=== PATIENT | male | born 1940 | race Caucasian/White ===

== ENCOUNTER 2016-11-10 14:49 | Inpatient (IN) | payer OTHER ==
[~2016-11-10] VITALS: Ht 167.6 cm; Wt 81.2 kg
[~2016-11-10 14:49] MED LIST: AMLO5TAB4 PO; ASPI81CT89 PO; BISA5ECT2 PO; DOCU-67 PO; FAMO10TA89 PO; HYDR-4446 PO; KEP500 PO; KEP500L PO; Metoprolol Tartrate PO; OSC500 PO; PHO667 PO; PYRI50TA12 PO; SACC250C4 PO; SEVE800T6 PO; SIMV20TA1 PO; SLIDE SUBQ; SYN.075 PO; TAMS0.4C96 PO; TRAM50TA94 PO; VITA1TAB44 PO
--- NOTE | 2016-11-10 14:55 | NUR ---
PT BIBA TO BED 3 AT THIS TIME.
[2016-11-10 15:10] VITALS: BP 141/66
--- NOTE | 2016-11-10 15:16 | NUR ---
PATIENT MOVED VIA GURNEY TO BED 4 AT THIS TIME.
--- NOTE | 2016-11-10 15:20 | NUR ---
PT BIBA FROM SNF FOR EVALUATION OF EDEMA R/T REFUSAL OF DIALYSIS X3 DAYS. HX DM, ESRD, HTN, CHF. DENIES N/V/D; SKIN IS PINK/WARM/DRY; AAOX4 WITH EVEN AND STEADY GAIT; LUNGS CLEAR BL; HR EVEN AND REGULAR; PT DENIES ANY FEVER, CP, SOB, OR COUGH AT THIS TIME; PATIENT STATES PAIN OF 0/10 AT THIS TIME; VSS; PATIENT POSITIONED FOR COMFORT; HOB ELEVATED; BEDRAILS UP X2; BED DOWN. ER MD MADE AWARE OF PT STATUS.
[2016-11-10 15:55] LABS: BASOPHILS # (AUTO) 0.1 K/uL (0.00-0.22); BASOPHILS % (AUTO) 1.2 % (0.0-2.0); EOSINOPHILS # (AUTO) 0.4 K/uL (0-0.4); EOSINOPHILS % (AUTO) 5.4 % (0.0-4.0); HEMATOCRIT 21.5 % (36-52); LYMPHOCYTES # (AUTO) 1.2 K/uL (2.0-11.5); LYMPHOCYTES % (AUTO) 15.4 % (20.5-51.1); MEAN CORPUSCULAR HEMOGLOBIN 29 pg (27-31); MEAN CORPUSCULAR HGB CONC 32 g/dL (33-37); MEAN CORPUSCULAR VOLUME 89 fL (80-94); MONOCYTES # (AUTO) 0.8 K/uL (0.8-1.0); NEUTROPHILS # (AUTO) 5.1 K/uL (1.8-7.7); PLATELET COUNT (AUTO) 257 K/uL (140-450); RED BLOOD CELL COUNT(AUTO) 2.43 MIL/uL (4.20-6.10); RED CELL DISTRIBUTION WIDTH 16.1 % (11.6-13.7); WHITE BLOOD COUNT (AUTO) 7.6 K/uL (4.8-10.8)
[2016-11-10 15:58] LABS: INR 1.1 (0.8-1.2); PARTIAL THROMBOPLASTIN TIME 29.9 secs (22-35.6)
[2016-11-10 16:03] LABS: ALANINE AMINOTRANSFERASE 100 U/L (16-63); ALBUMIN 2.5 g/dL (3.4-5.0); ALKALINE PHOSPHATASE 604 U/L (46-116); ANION GAP 13.5 (8-16); ASPARTATE AMINOTRANSFERASE 74 U/L (15-37); CALCIUM 8.1 mg/dL (8.5-10.1); CARBON DIOXIDE 28.5 mmol/L (21-32); CHLORIDE 93 mmol/L (98-107); GLUCOSE 160 mg/dL (74-106); SODIUM SERUM 131 mmol/L (136-145); TOTAL BILIRUBIN 0.6 mg/dL (0.0-1.0); TOTAL PROTEIN, SERUM 6.5 g/dL (6.4-8.2)
[2016-11-10 16:07] LABS: CREATININE 6.7 mg/dL (0.7-1.3); UREA NITROGEN, BLOOD 79 mg/dL (7-18)
[2016-11-10] MEDS ORDERED: AZITHROMYCIN 500 MG in DEXTROSE 5% 250 ML IV ONE (16:15)
--- NOTE | 2016-11-10 16:20 | NUR ---
PT PROVIDED URINE VIA URINAL FOR URINALYSIS
[2016-11-10 16:36] LABS: LACTIC ACID 0.9 mmol/L (0.4-2.0)
[2016-11-10] MEDS ORDERED: ONDANSETRON 4 MG/2 ML VIAL IM/IVP PRN (16:55)
[2016-11-10] MEDS ORDERED: HYDROcodone/APAP 7.5/325 MG 1 TAB PO PRN (16:55)
[2016-11-10] MEDS ORDERED: DOCUSATE SODIUM 100 MG GELCAP PO PRN (16:55)
[2016-11-10] MEDS ORDERED: traMADol 50 MG TAB PO PRN (17:00)
[2016-11-10] MEDS ORDERED: AZITHROMYCIN 500 MG INJ VIAL IV ONE (17:00)
[2016-11-10] MEDS ORDERED: NON-FORMULARY ITEM (Saccharomyces Boulardii* (Florastor*) 250 MG) PO SCH (17:00)
[2016-11-10] MEDS ORDERED: SEVELAMER CARBONATE 800 MG TAB PO SCH (17:00)
[2016-11-10 17:29] LABS: MAGNESIUM 2.4 mg/dL (1.8-2.4); PHOSPHORUS 6.3 mg/dL (2.5-4.9); THYROID STIMULATING HORMONE 3.79 uIU/mL (0.34-3.74)
--- NOTE | 2016-11-10 18:04 | NUR ---
Patient will be admitted to care of STEFANIE. Admited to TELE. Will go to room 112B. Belongings list completed. Report to DAMI VARGHESE.
--- NOTE | 2016-11-10 19:30 | NUR ---
RECEIVED REPORT FROM CHARGE NURSE FOR CONTINUITY OF CARE. 76 Y.O. MALE BROUGHT TO UNIT IN STABLE CONDITION. PATIENT IS A&OX3, DISCUSSED PLAN OF CARE WITH PATIENT. NO S/S OF DISTRESS OR DISCOMFORT NOTED ON 2L NC. PATIENT DENIES PAIN. AV SHUNT TO LEFT UPPER ARM. IV TO RT AC PATENT AND FLUSHED. SKIN INTACT. WRISTBANDS APPLIED, SAFETY PRECAUTIONS ENFORCED, CALL LIGHT WITHIN REACH. WILL CONTINUE TO MONITOR.
[2016-11-10] MEDS ORDERED: LEVOFLOXACIN 500 MG/D5W PREMIX 100 ML IV SCH (19:40)
[2016-11-10 20:00] VITALS: BP 160/71
--- NOTE | 2016-11-10 20:00 | NUR ---
DR. DE IN TO SEE PATIENT.
[2016-11-10] MEDS ORDERED: CALCIUM CARBONATE 500 MG TAB PO SCH (21:00)
[2016-11-10] MEDS ORDERED: TAMSULOSIN 0.4 MG CAP PO SCH (21:00)
[2016-11-10] MEDS: levETIRAcetam 500 MG TAB PO SCH (21:07)
--- NOTE | 2016-11-10 21:07 | NUR ---
DUE MEDICATIONS ADMINISTERED, TOLERATED WELL. PATIENT REQUESTING FOR MEDICATION FOR SLEEP, INFORMED DR, WILL FOLLOW OUT ORDERS GIVEN.
[2016-11-10] MEDS ORDERED: DEXTROSE 50% 50 ML SYR IVP PRN (21:35)
[2016-11-10] MEDS ORDERED: LORazepam 2 MG/ML VIAL IVP PRN (21:40)
[2016-11-10] MEDS ORDERED: PANTOPRAZOLE 40 MG INJ VIAL IVP ONE (21:50)
--- NOTE | 2016-11-10 23:00 | NUR ---
IV TO RT AC DISLODGED, NEW IV INSERTION TO RT HAND PATENT AND FLUSHED.
[2016-11-10] MEDS ORDERED: LACTULOSE 20 GM/30 ML UDC PO ONE (23:15)
[2016-11-10] MEDS: ZOLPIDEM 10 MG TAB PO PRN (23:30)
[2016-11-11] VITALS: BP 126/90
--- NOTE | 2016-11-11 | NUR ---
INFORMED DIALYSIS NURSE OF ORDER FOR AM DIALYSIS PER DR. ZHAO.
--- NOTE | 2016-11-11 00:18 | NUR ---
RECEIVED CRITICAL LAB VALUE FOR TROPONIN 0.207, INFORMED DR. DE. PATIENT SLEEPING AT THIS TIME. WILL CONTINUE TO MONITOR.
[2016-11-11] MEDS ORDERED: CLINDAMYCIN 600 MG/4 ML VIAL ONE ×2 (00:50→05:52)
[2016-11-11] MEDS: CLINDAMYCIN 600 MG in DEXTROSE 5% 50 ML IV SCH ×3 (01:15→12:20)
--- NOTE | 2016-11-11 02:00 | NUR ---
PATIENT SLEEPING, NO DISTRESS OR DISCOMFORT NOTED. CALL LIGHT WITHIN REACH.
--- NOTE | 2016-11-11 03:22 | NUR ---
INFORMED CT THAT PATIENT NEEDS TO HAVE CT AROUND 0600 PER , NEEDS FOR CONSULT WITH DR. DAVIS. PER DR. LOU OK TO HAVE U/S IN AM WELL. INFORMED MD THAT URINE CULTURE NEEDS TO BE REORDERED. WILL FOLLOW OUT ORDERS GIVEN. Addendum: 11/11/16 at 0457 by Maria Del Carmen Soriano RN PER CT ULTRASOUND NOT HERE UNTIL 0630.
[2016-11-11 04:00] VITALS: BP 125/64
--- NOTE | 2016-11-11 04:00 | NUR ---
VITAL SIGNS STABLE, PATIENT RESTING IN BED. NO S/S OF DISTRESS OR DISCOMFORT NOTED.
[2016-11-11] MEDS ORDERED: ALBUTEROL SULFATE/IPRATROPIU 3 ML SOL IH PRN (04:30)
[2016-11-11] MEDS ORDERED: BISACODYL 5 MG TABEC PO PRN (04:30)
[2016-11-11] MEDS: BLOOD GLUCOSE MONITORING 1 DEV DEV FS SCH ×4 (06:00→21:12)
--- NOTE | 2016-11-11 06:20 | NUR ---
PATIENT TAKEN OFF UNIT TO CT IN STABLE CONDITION.
[2016-11-11] MEDS ORDERED: NON-FORMULARY ITEM (Famotidine (Famotidine) 20 MG) PO SCH (06:30)
[2016-11-11 06:45] LABS: HEMOGLOBIN A1C 5.2 % (4.8-5.6); T4 (THYROXINE) 5.9 ug/dL (4.5-12.0)
--- NOTE | 2016-11-11 06:45 | NUR ---
PATIENT BROUGHT BACK FROM CT IN STABLE CONDITION, IVPB RESTARTED. WILL CONTINUE TO MONITOR.
[2016-11-11] MEDS: LEVOTHYROXINE 0.075 MG TAB PO SCH (06:48)
[2016-11-11] MEDS: CALCIUM ACETATE 667 MG TAB PO SCH ×2 (06:48→17:10)
[2016-11-11] MEDS: FAMOTIDINE 20 MG TAB PO SCH (06:48)
[2016-11-11] MEDS: ALBUTEROL SULFATE/IPRATROPIU 3 ML SOL IH SCH ×3 (07:05→19:55)
--- NOTE | 2016-11-11 07:11 | NUR ---
ENDORSED PATIENT AT BEDSIDE TO DAY RN FOR CONTINUITY OF CARE.
--- NOTE | 2016-11-11 07:11 | NUR ---
RECEIVED REPORT FROM NIGHT NURSE, PT IS AAOX3 CZECH SPEAKING, ON O2 2L VIA NC, SKIN INTACT, IV TO RIGHT HAND 24G SALINE LOCK PATENT AND INTACT, LEFT UPPER AV SHUNT. INITIAL ASSESSMENT COMPLETED, REVIEWED PLAN OF CARE WITH PT, PT VERBALIZED UNDERSTANDING. ALL SAFETY PRECAUTIONS MET. ALL NEEDS MET. CALL LIGHT WITHIN REACH. WILL CONTINUE TO MONITOR.
[2016-11-11 07:38] LABS: BASOPHILS % (AUTO) 0.7 % (0.0-2.0); EOSINOPHILS # (AUTO) 0.3 K/uL (0-0.4); EOSINOPHILS % (AUTO) 4.6 % (0.0-4.0); LYMPHOCYTES # (AUTO) 1.1 K/uL (2.0-11.5); LYMPHOCYTES % (AUTO) 15.5 % (20.5-51.1); MEAN CORPUSCULAR HEMOGLOBIN 28 pg (27-31); MEAN CORPUSCULAR HGB CONC 32 g/dL (33-37); MEAN CORPUSCULAR VOLUME 88 fL (80-94); MONOCYTES # (AUTO) 0.8 K/uL (0.8-1.0); MONOCYTES % (AUTO) 11.3 % (1.7-9.3); NEUTROPHILS # (AUTO) 4.7 K/uL (1.8-7.7); NEUTROPHILS % (AUTO) 67.9 % (42.2-75.2); PLATELET COUNT (AUTO) 275 K/uL (140-450); RED BLOOD CELL COUNT(AUTO) 2.16 MIL/uL (4.20-6.10); RED CELL DISTRIBUTION WIDTH 16.1 % (11.6-13.7); WHITE BLOOD COUNT (AUTO) 6.9 K/uL (4.8-10.8)
[2016-11-11 07:42] LABS: HEMOGLOBIN 6.1 g/dL (12.0-18.0)
[2016-11-11 07:51] LABS: MAGNESIUM 2.4 mg/dL (1.8-2.4); PHOSPHORUS 6.6 mg/dL (2.5-4.9)
[2016-11-11 07:56] LABS: ANION GAP 15.1 (8-16); CARBON DIOXIDE 25.2 mmol/L (21-32); CHLORIDE 95 mmol/L (98-107); GLUCOSE 130 mg/dL (74-106); POTASSIUM 4.3 mmol/L (3.5-5.1); SODIUM SERUM 131 mmol/L (136-145)
[2016-11-11 07:57] VITALS: BP 129/67
[2016-11-11 07:57] LABS: CREATININE 6.6 mg/dL (0.7-1.3); UREA NITROGEN, BLOOD 87 mg/dL (7-18)
[2016-11-11] MEDS ORDERED: SEVELAMER CARBONATE 800 MG TAB PO SCH (08:01)
[2016-11-11] MEDS ORDERED: [UNRECOGNIZED DRUG - OTHER] PO SCH (09:00)
[2016-11-11] MEDS: amLODIPine 5 MG TAB PO SCH (09:00)
[2016-11-11] MEDS ORDERED: METOPROLOL 25 MG TAB PO SCH (09:00)
[2016-11-11] MEDS ORDERED: ASPIRIN 81 MG TAB.CHEW PO SCH (09:00)
[2016-11-11] MEDS ORDERED: SIMVASTATIN 20 MG TAB PO SCH (09:00)
[2016-11-11] MEDS ORDERED: VIT-B COMP/VIT-C/FOLIC ACID 1 TAB PO SCH (09:00)
--- NOTE | 2016-11-11 09:04 | NUR ---
PATIENT HAS BEEN SCREENED AND CATEGORIZED HIGH NUTRITION RISK. PATIENT WILL BE SEEN WITHIN 1-2 DAYS OF ADMISSION. 11/11/16-11/12/[address]
[2016-11-11] MEDS: levETIRAcetam 500 MG TAB PO SCH ×2 (09:10→21:10)
[2016-11-11] MEDS: CALCIUM CARBONATE 500 MG TAB PO SCH ×2 (09:11→17:10)
[2016-11-11] MEDS: PYRIDOXINE 50 MG TAB PO SCH (09:11)
[2016-11-11] MEDS: LACTOBACILLUS RHAMNOSUS GG 1 EACH CAP PO SCH (09:11)
[2016-11-11] MEDS: VIT-B COMP/VIT-C/FOLIC ACID 1 TAB PO SCH (09:11)
--- NOTE | 2016-11-11 09:11 | NUR ---
CAMPBELL MEDICATIONS GIVEN, NEW IV INSERTED RIGHT FA 22G SALINE LOCK. ALL NEEDS MET. WILL CONTINUE TO MONITOR. Addendum: 11/11/16 at 0958 by Zehra Duncan RN BP MEDS NOT GIVE VS WNL.
[2016-11-11] MEDS: PANTOPRAZOLE 40 MG INJ VIAL IVP SCH ×2 (09:51→21:10)
[2016-11-11 11:34] LABS: BASOPHILS # (AUTO) 0.1 K/uL (0.00-0.22); LYMPHOCYTES # (AUTO) 0.8 K/uL (2.0-11.5)
[2016-11-11 11:46] LABS: BASOPHILS % (AUTO) 1.3 % (0.0-2.0); EOSINOPHILS # (AUTO) 0.2 K/uL (0-0.4); EOSINOPHILS % (AUTO) 3.3 % (0.0-4.0); LYMPHOCYTES % (AUTO) 12.9 % (20.5-51.1); MEAN CORPUSCULAR HEMOGLOBIN 29 pg (27-31); MEAN CORPUSCULAR HGB CONC 33 g/dL (33-37); MEAN CORPUSCULAR VOLUME 88 fL (80-94); MONOCYTES # (AUTO) 0.7 K/uL (0.8-1.0); MONOCYTES % (AUTO) 11.3 % (1.7-9.3); NEUTROPHILS # (AUTO) 4.3 K/uL (1.8-7.7); NEUTROPHILS % (AUTO) 71.2 % (42.2-75.2); PLATELET COUNT (AUTO) 273 K/uL (140-450); RED BLOOD CELL COUNT(AUTO) 2.01 MIL/uL (4.20-6.10); WHITE BLOOD COUNT (AUTO) 6.1 K/uL (4.8-10.8)
[2016-11-11 11:48] LABS: HEMATOCRIT 17.6 % (36-52); HEMOGLOBIN 5.7 g/dL (12.0-18.0)
--- NOTE | 2016-11-11 11:56 | NUR ---
11/11/16 RD INITIAL ASSESSMENT COMPLETED PLEASE REFER TO NUTRITION ASSESSMENT UNDER CARE ACTIVITY FOR ESTIMATED NUTRITIONAL NEEDS. 1. WHEN MEDICALLY FEASIBLE, INITIATE PO DIET - TO START ON CLEAR LIQUID DIET, ADVANCE TOLERATED TO RENAL, 75G CONSISTENT CARBOHYDRATE DIET 2. RD TO FOLLOW-UP 2-3 DAYS; HIGH RISK JEANNE REN, HUGO
[2016-11-11 12:00] VITALS: BP 143/59
[2016-11-11] MEDS: SEVELAMER CARBONATE 800 MG TAB PO SCH ×2 (12:20→17:10)
--- NOTE | 2016-11-11 12:20 | NUR ---
DUE MEDICATIONS GIVEN. ALL NEEDS MET. WILL CONTINUE TO MONITOR.
--- NOTE | 2016-11-11 12:50 | NUR ---
PATIENT OFF O2 OXYGEN, POST THERAPY PLACED BACK ON O2 3LPM NC
--- NOTE | 2016-11-11 13:00 | NUR ---
LOAN SERVICING OFFICER UNABLE TO PROCEED WITH INCENTIVE SPIROMETRY THERAPY AT THIS TIME DUE TO PATIENT WITH SLIGHT COMBATIVENESS LOAN SERVICING OFFICER TO ATTEMPT AT A LATER TIME
--- NOTE | 2016-11-11 14:25 | NUR ---
HD NURSE CURRENTLY IN ROOM, ALL NEEDS MET. WILL CONTINUE TO MONITOR.
--- NOTE | 2016-11-11 15:05 | NUR ---
FIRST UNIT OF RBC GIVEN BY HEMODIALYSIS NURSE.
--- NOTE | 2016-11-11 15:45 | NUR ---
FIRST UNIT OF RBC COMPLETED. PT CONTINUES TO GET HEMODIALYSIS. WILL CONTINUE TO MONITOR.
[2016-11-11 16:00] VITALS: BP 120/84
[2016-11-11] MEDS ORDERED: ACETAMINOPHEN 325 MG TAB PO PRN (16:00)
[2016-11-11] MEDS ORDERED: FUROSEMIDE 20 MG TAB PO PRN (16:00)
--- NOTE | 2016-11-11 16:02 | NUR ---
PATIENT UNABLE TO PROCEED WITH INCENTIVE SPIROMETRY THERAPY DUE TO THE FOLLOWIN) LOC ASLEEP UNABLE TO WAKE 2) HEMODIALYSIS IN PROGRESS
--- NOTE | 2016-11-11 16:30 | NUR ---
SECOND UNIT OF RBC COMPLETED.
[2016-11-11] MEDS ORDERED: LACTULOSE 20 GM/30 ML UDC PO SCH ×2 (16:41→21:00)
[2016-11-11] MEDS ORDERED: FERRIC GLUCONATE 125 MG in NACL 0.9% 100 ML IV SCH (17:03)
[2016-11-11] MEDS: TAMSULOSIN 0.4 MG CAP PO SCH (17:10)
[2016-11-11] MEDS: SENNA 8.6 MG TAB PO SCH (17:11)
[2016-11-11] MEDS: INSULIN LISPRO SLIDING SCALE 100 UNITS/ML VIAL SUBQ PRN (17:29)
--- NOTE | 2016-11-11 17:29 | NUR ---
DUE MEDICATION GIVEN. PT TOLERATED WELL. ALL NEEDS MET. WILL CONTINUE TO MONITOR.
--- NOTE | 2016-11-11 19:15 | NUR ---
RECEIVED REPORT FROM DAMI RICHMOND AT BEDSIDE. INITIAL ASSESSMENT COMPLETED. PT AAOX3. PT IN BEDREST. PT'S SKIN IS INTACT. PT HAS A LEFT UPPER ARM AV SHUNT FOR DIALYSIS. PT HAS A RIGHT FOREARM IV 22 G; ASYMPTOMATIC, PATENT AND INTACT. PT ON FALL/RISK PRECAUTION AND SEIZURE PRECAUTIONS. PT ON 02 3L NC. EXPLAINED PLAN OF CARE TO PT, WILL CONTINUE TO MONITOR. BED ALARM ON.
--- NOTE | 2016-11-11 19:15 | NUR ---
ENDORSED PLAN OF CARE TO NIGHT NURSE, PT IN STABLE CONDITION.
[2016-11-11 20:00] VITALS: BP 145/70
--- NOTE | 2016-11-11 20:50 | NUR ---
BRANDO FROM LAB CAME TO DRAW PT'S LABS POST TRANSFUSION AND PT REFUSED. I EXPLAINED TO PT THE IMPORTANCE OF THE BLOOD DRAW, BUT STILL REFUSES. PAGED DR. DE AND CAME TO SEE PT. WE TALKED TO PT AND TRIED TO CONVINCED HIM BUT HE STILL REFUSES. WILL CONTINUE TO MONITOR PT.
[2016-11-11] MEDS: LACTULOSE 20 GM/30 ML UDC PO SCH (21:10)
[2016-11-11] MEDS: ZOLPIDEM 10 MG TAB PO PRN (21:11)
[2016-11-11] MEDS: ASCORBIC ACID 500 MG TAB PO SCH (21:11)
[2016-11-11] MEDS: SIMVASTATIN 20 MG TAB PO SCH (21:11)
--- NOTE | 2016-11-11 21:20 | NUR ---
PT TOLERATED 2100 MEDS WELL; PT REQUESTED A SLEEPING PILL. EDUCATION GIVEN REGARDING THE MEDICATION. WILL CONTINUE TO MONITOR PT.
--- NOTE | 2016-11-11 21:25 | NUR ---
PT DRANK SOME OF THE MAGNESIUM CITRATE; HE STATED HE WILL DRINK THE REST LITTLE BY LITTLE. WILL CONTINUE TO MONITOR PT.
[2016-11-11] MEDS ORDERED: MAGNESIUM CITRATE 300 ML BTL PO SCH (22:00)
--- NOTE | 2016-11-11 22:53 | NUR ---
PT REPOSITIONED FOR COMFORT. PT TOLERATED IT WELL. WILL CONTINUE TO MONITOR PT.
--- NOTE | 2016-11-11 23:18 | NUR ---
PT REMINDED THAT HE WILL BE NPO AFTER MIDNIGHT. PT VERBALIZES UNDERSTANDING.
--- NOTE | 2016-11-11 23:53 | NUR ---
CHECKED ON PT, CHECKED VS AND PT GOT ANGRY. HE STATED THAT MEDICAL STAFF DO NOT LET HIM SLEEP BECAUSE WE ENTER THE ROOM TOO MANY TIMES. I EXPLAINED TO HIM THAT WE WANT TO CHECK ON HIM TO MAKE SURE HE IS OK. WILL CONTINUE TO MONITOR PT.
[2016-11-12] VITALS: BP 138/72
--- NOTE | 2016-11-12 00:05 | NUR ---
URINE COLLECTED AND SENT TO LAB.
--- NOTE | 2016-11-12 03:10 | NUR ---
PT SLEEPING COMFORTABLY, NO SINGS OF DISTRESS/DISCOMFORT NOTED. WILL CONTINUE TO MONITOR PT.
[2016-11-12 04:00] VITALS: BP 145/74
[2016-11-12 06:05] LABS: BASOPHILS # (AUTO) 0.1 K/uL (0.00-0.22); BASOPHILS % (AUTO) 1.3 % (0.0-2.0); EOSINOPHILS # (AUTO) 0.2 K/uL (0-0.4); EOSINOPHILS % (AUTO) 3.3 % (0.0-4.0); HEMATOCRIT 25.2 % (36-52); HEMOGLOBIN 8.4 g/dL (12.0-18.0); LYMPHOCYTES % (AUTO) 14.3 % (20.5-51.1); MEAN CORPUSCULAR HEMOGLOBIN 29 pg (27-31); MEAN CORPUSCULAR HGB CONC 33 g/dL (33-37); MEAN CORPUSCULAR VOLUME 88 fL (80-94); MONOCYTES # (AUTO) 0.9 K/uL (0.8-1.0); MONOCYTES % (AUTO) 12.2 % (1.7-9.3); NEUTROPHILS # (AUTO) 4.9 K/uL (1.8-7.7); NEUTROPHILS % (AUTO) 68.9 % (42.2-75.2); PLATELET COUNT (AUTO) 248 K/uL (140-450); RED BLOOD CELL COUNT(AUTO) 2.86 MIL/uL (4.20-6.10); RED CELL DISTRIBUTION WIDTH 14.8 % (11.6-13.7); WHITE BLOOD COUNT (AUTO) 7.1 K/uL (4.8-10.8)
[2016-11-12] MEDS: CALCIUM ACETATE 667 MG TAB PO SCH ×2 (06:31→16:22)
[2016-11-12] MEDS: LEVOTHYROXINE 0.075 MG TAB PO SCH (06:32)
[2016-11-12] MEDS: FAMOTIDINE 20 MG TAB PO SCH (06:32)
--- NOTE | 2016-11-12 06:36 | NUR ---
PT TOLERATED MORNING MEDS WELL.
--- NOTE | 2016-11-12 06:40 | NUR ---
CALL DR. DAVIS TO NOTIFY HIM THAT PT IS STILL HAVING FORMED STOOLS. DR. CHERY GAVE ORDERS FOR GOLYTELY 2 L NOW AND TO GIVE MAGNESIUM CITRATE 300 ML ONCE THREE HOURS AFTER GIVING GOLYTELY. WILL FOLLOW UP ON ORDERS.
[2016-11-12] MEDS ORDERED: BOWEL EVACUANT DRINK 4,000 ML PDS PO SCH (06:45)
[2016-11-12 07:16] LABS: CALCIUM 8.4 mg/dL (8.5-10.1); CARBON DIOXIDE 28.2 mmol/L (21-32); CHLORIDE 100 mmol/L (98-107); CREATININE 3.8 mg/dL (0.7-1.3); GLUCOSE 114 mg/dL (74-106); POTASSIUM 4.2 mmol/L (3.5-5.1); SODIUM SERUM 138 mmol/L (136-145); UREA NITROGEN, BLOOD 41 mg/dL (7-18)
[2016-11-12] MEDS: ALBUTEROL SULFATE/IPRATROPIU 3 ML SOL IH SCH ×3 (07:17→19:30)
[2016-11-12] MEDS: BLOOD GLUCOSE MONITORING 1 DEV DEV FS SCH ×4 (07:29→20:43)
--- NOTE | 2016-11-12 07:31 | NUR ---
FOUND PT ON ROOM AIR SPO2 85%, PT RETURNED TO 2L NC SPO2 NORMAL AT THIS TIME.
--- NOTE | 2016-11-12 07:32 | NUR ---
ENDORSED PLAN OF CARE TO DAY SHIFT NURSE PT IN STABLE CONDITION.
--- NOTE | 2016-11-12 07:32 | NUR ---
RECEIVED REPORT FROM NIGHT NURSE, PT IS AAOX3 AMHARIC SPEAKING, ON O2 2L VIA NC, SKIN INTACT, IV TO RIGHT HAND 24G SALINE LOCK PATENT AND INTACT, LEFT UPPER AV SHUNT. INITIAL ASSESSMENT COMPLETED, REVIEWED PLAN OF CARE WITH PT, PT VERBALIZED UNDERSTANDING. ALL SAFETY PRECAUTIONS MET. ALL NEEDS MET. CALL LIGHT WITHIN REACH. WILL CONTINUE TO MONITOR.
[2016-11-12 08:00] VITALS: BP 140/68
[2016-11-12] MEDS: CALCIUM CARBONATE 500 MG TAB PO SCH ×2 (08:00→16:22)
[2016-11-12] MEDS: SEVELAMER CARBONATE 800 MG TAB PO SCH ×3 (08:00→16:22)
[2016-11-12] MEDS: LACTOBACILLUS RHAMNOSUS GG 1 EACH CAP PO SCH (08:21)
[2016-11-12] MEDS: LACTULOSE 20 GM/30 ML UDC PO SCH ×2 (08:21→12:36)
[2016-11-12] MEDS: METOPROLOL SUCCINATE 50 MG TABER PO SCH (08:22)
[2016-11-12] MEDS: amLODIPine 5 MG TAB PO SCH (08:22)
[2016-11-12] MEDS: VIT-B COMP/VIT-C/FOLIC ACID 1 TAB PO SCH (08:22)
[2016-11-12] MEDS: PYRIDOXINE 50 MG TAB PO SCH (08:22)
[2016-11-12] MEDS: SENNA 8.6 MG TAB PO SCH ×3 (08:22→20:44)
[2016-11-12] MEDS: levETIRAcetam 500 MG TAB PO SCH ×2 (08:22→20:43)
[2016-11-12] MEDS: ASCORBIC ACID 500 MG TAB PO SCH ×2 (08:23→20:44)
[2016-11-12] MEDS: MORPHINE SULFATE 2 MG/ML SYR IVP PRN (08:29)
[2016-11-12] MEDS: PANTOPRAZOLE 40 MG INJ VIAL IVP SCH (08:29)
--- NOTE | 2016-11-12 08:35 | NUR ---
PO MEDICATIONS NOT GIVE, PT CURRENTLY NPO FOR PROCEDURE, PT C/CO OF PAIN MEDICATED PER MD ORDERS. ALL NEEDS MET. WILL CONTINUE TO MONITOR.
[2016-11-12] MEDS ORDERED: MAGNESIUM CITRATE 300 ML BTL PO SCH (09:40)
--- NOTE | 2016-11-12 10:45 | NUR ---
PT CURRENTLY SLEEPING, CALL LIGHT WITHIN REACH. WILL CONTINUE TO MONITOR.
--- NOTE | 2016-11-12 11:10 | NUR ---
PT REFUSING TO DRINK GOLYTELY 1500MLS LEFT, ENCOURAGE PT TO DRINK, PT REFUSES.
[2016-11-12 12:00] VITALS: BP 142/75
[2016-11-12] MEDS ORDERED: SODIUM PHOSPHATE 118 ML ENEM RC SCH (13:05)
--- NOTE | 2016-11-12 13:05 | NUR ---
PT LEFT UNIT FOR PROCEDURE IN STABLE CONDITION
[2016-11-12] MEDS: MIDAZOLAM 2 MG/2 ML VIAL ONE ×2 (13:52→14:04)
[2016-11-12] MEDS ORDERED: diphenhydrAMINE 50 MG/ML VIAL ONE (13:53)
[2016-11-12] MEDS: fentaNYL 0.05 MG/ML VIAL ONE ×2 (13:53→14:04)
[2016-11-12] MEDS ORDERED: MIDAZOLAM 2 MG/2 ML VIAL ONE (14:17)
--- NOTE | 2016-11-12 14:40 | NUR ---
PT ARRIVED TO UNIT FROM OR, VS TEMP 97.9, BP 128/52, HR 92 PULSE OX 95% ON O2 2L VIA NC. CALL LIGHT WITHIN REACH. WILL CONTINUE TO MONITOR.
[2016-11-12] MEDS: FERRIC GLUCONATE 125 MG in NACL 0.9% 100 ML IV SCH (15:31)
--- NOTE | 2016-11-12 15:31 | NUR ---
DUE MEDICATIONS GIVEN, ALL NEEDS MET. WILL CONTINUE TO MONITOR.
[2016-11-12 15:56] VITALS: BP 137/66
--- NOTE | 2016-11-12 16:05 | NUR ---
PT CURRENTLY SLEEPING . CALL LIGHT WITHIN REACH. WILL CONTINUE TO MONITOR.
[2016-11-12] MEDS: TAMSULOSIN 0.4 MG CAP PO SCH (16:22)
[2016-11-12] MEDS: METOCLOPRAMIDE 10 MG TAB PO SCH (16:27)
--- NOTE | 2016-11-12 16:36 | NUR ---
DUE MEDICATION GIVEN GIVEN. PT TOLERATED WELL. ALL NEEDS MET. WILL CONTINUE TO MONITOR.
[2016-11-12 16:42] LABS: ALBUMIN 2.5 g/dL (3.4-5.0); BILIRUBIN,DIRECT 0.3 mg/dL (0.0-0.3); TOTAL BILIRUBIN 0.4 mg/dL (0.0-1.0); TOTAL PROTEIN, SERUM 5.9 g/dL (6.4-8.2)
--- NOTE | 2016-11-12 19:30 | NUR ---
RECEIVED REPORT FROM AM NURSE. PT RESTING IN BED, AOX2, PT CONFUSED BUT ABLE TO VERBALIZE NEEDS. PT REORIENTED TO SITUATION AND SURROUNDING. PT DENIES CHEST PAIN, SOB OR S/S OF ACUTE DISTRESS. PT DENIES ACUTE PAIN. O2 2L NC IN PLACE. STUDIO TECHNICIAN IN PLACE. LEFT AV SHUNT NOTED, LIMB RESTRICTIONS AND PRECAUTIONS MAINTAINED. IV ACCESS ASYMPTOMATIC, PATENT AND INTACT. SALINE LOCKED. DISCUSSED AND REVIEWED PLAN OF CARE WITH PT. PT INSTRUCTED TO BE NPO AT MIDNIGHT. WILL CONTINUE TO REINFORCE TEACHING. SAFETY MEASURES ENSURED. CALL LIGHT WITHIN REACH. WILL CONTINUE TO MONITOR.
[2016-11-12 20:00] VITALS: BP 143/62
--- NOTE | 2016-11-12 20:10 | NUR ---
PT EVALUATED BY DR MONTAÑO, DISCUSSED PT CONDITION AND PLAN OF CARE. PT AOX2, CONFUSED AT THIS TIME. ORDERS ACKNOWLEDGED TO OBTAIN CONSENT FOR ERCP, STENT REMOVAL, POLYPECTOMY AND BX. STATED THAT THE PT FAMILY'S CONTACT INFO WAS NOT WORKING. WILL CALL [facility], PT'S [facility], FOR PT'S FAMILY CONTACT INFO
--- NOTE | 2016-11-12 20:18 | NUR ---
CALLED [facility], RECEIVED CONTACT INFO FOR ASHLY MCDERMOTT, PT'S , ; JAGDISH MCDERMOTT, PT'S SON, ; NNAMDI MCDERMOTT . MADE DR BRITO AWARE, STATED THAT IT IS THE SAME CONTACT INFO THAT WE HAVE ON PT'S CHART AND THE NUMBERS WERE NOT WORKING. CALLED ALL OF PT'S FAMILY CONTACTS, NO ANSWER AND NO VOICEMAIL OPTION. WILL FOLLOW UP.
[2016-11-12] MEDS: SIMVASTATIN 20 MG TAB PO SCH (20:44)
--- NOTE | 2016-11-12 20:45 | NUR ---
BLOOD SUGAR 111, NO INSULIN COVERAGE NEEDED. PT REFUSED DUE MEDS DESPITE EDUCATION. WILL TRY AGAIN LATER. WILL NOTIFY MD. SAFETY MEASURES ENSURED. CALL LIGHT WITHIN REACH. WILL CONTINUE TO MONITOR
[2016-11-12] MEDS ORDERED: LEVOFLOXACIN 250 MG/D5 PREMIX 50 ML IV SCH (21:00)
--- NOTE | 2016-11-12 21:45 | NUR ---
ATTEMPTED TO ADMINISTER PT'S DUE MEDICATIONS, PT STILL REFUSING DESPITE EDUCATION. HANDED PT THE MEDICATION CUP ON HIS HAND WHILE EXPLAINING THE IMPORTANCE OF PT'S MEDICATIONS, PT THREW THE MEDICATION CUP TO THE FLOOR. WILL MAKE MD AWARE. PT CLEANED, TURNED AND REPOSITIONED, OFFLOADED PRESSURE AREAS WITH NUCLEAR LICENSING ENGINEER. LARGE BLACK LOOSE BM NOTED. SAFETY MEASURES ENSURED. CALL LIGHT WITHIN REACH.
[2016-11-12] MEDS ORDERED: levETIRAcetam 500 MG in NACL 0.9% 100 ML IV ONE (23:15)
[2016-11-12] MEDS ORDERED: levETIRAcetam 100 MG/ML VIAL IV ONE (23:57)
[2016-11-13] VITALS (13 sets, daily range): BP systolic 120–146; BP diastolic 52–70
--- NOTE | 2016-11-13 00:01 | NUR ---
ADMINISTERED ONE TIME KEPPRA 500MG IN 100ML NS IVPB AT THIS TIME. IVPB INFUSING WELL. PT CLEANED, TURNED AND REPOSITIONED. LARGE BLACK LOOSE BM NOTED WITH MILD ODOR. MADE MD AWARE. SAFETY MEASURES ENSURED. CALL LIGHT WITHIN REACH.
--- NOTE | 2016-11-13 04:50 | NUR ---
PT RESTING IN BED. PT SEEN WITH O2 2C ON BED. O2 NC IS PUT BACK ON, PT REORIENTED AND EDUCATED ON IMPORTANCE OF O2 NC, SPO2 94%, RR 24. SAFETY MEASURES ENSURED. CALL LIGHT WITHIN REACH. WILL CONTINUE TO MONITOR.
[2016-11-13] MEDS: FAMOTIDINE 20 MG TAB PO SCH (06:22)
[2016-11-13] MEDS: LEVOTHYROXINE 0.075 MG TAB PO SCH (06:23)
--- NOTE | 2016-11-13 06:26 | NUR ---
HELD PEPCID PER DR BAUMAN. ADMINISTERED LEVOTHYROXINE ORDERED PER DR BAUMAN. PT TOLERATED WELL.
--- NOTE | 2016-11-13 06:41 | NUR ---
BLOOD SUGAR 105, NO INSULIN COVERAGE NEEDED.
--- NOTE | 2016-11-13 07:15 | NUR ---
ENDORSED PLAN OF CARE TO AM NURSE. CONDITION STABLE.
[2016-11-13] MEDS: ALBUTEROL SULFATE/IPRATROPIU 3 ML SOL IH SCH ×3 (07:17→18:55)
--- NOTE | 2016-11-13 07:20 | NUR ---
RECEIVED PT IN BED. AWAKE. ALERT ORIENTED X3. NO SOB NOTED. ON 2LPM VIA NC. DENIES ANY PAIN OR DISCOMFORT AT THIS TIME. POSITIVE BOWEL SOUNDS NOTED ON FOUR QUADRANTS. PT ON BEDBOUND. SAFETY PRECAUTION IN PLACE. CALL LIGHT WITHIN REACH.
[2016-11-13] MEDS: CALCIUM ACETATE 667 MG TAB PO SCH ×2 (07:25→17:00)
[2016-11-13] MEDS: BLOOD GLUCOSE MONITORING 1 DEV DEV FS SCH ×4 (07:25→21:00)
[2016-11-13] MEDS: METOCLOPRAMIDE 10 MG TAB PO SCH ×3 (07:25→17:00)
--- NOTE | 2016-11-13 07:25 | NUR ---
ADMINISTERED DUE MEDICATIONS REGLAN AND SANDIPSLO, OK TO GIVE PER DR BAUMAN. PT VERBALIZED UNDERSTANDING, TOLERATED MEDS WELL.
[2016-11-13] MEDS ORDERED: levETIRAcetam 500 MG in NACL 0.9% 100 ML IV SCH (09:00)
[2016-11-13 09:04] LABS: BASOPHILS # (AUTO) 0.1 K/uL (0.00-0.22); BASOPHILS % (AUTO) 1.6 % (0.0-2.0); EOSINOPHILS # (AUTO) 0.4 K/uL (0-0.4); HEMATOCRIT 26.8 % (36-52); HEMOGLOBIN 8.4 g/dL (12.0-18.0); LYMPHOCYTES # (AUTO) 1.3 K/uL (2.0-11.5); LYMPHOCYTES % (AUTO) 14.2 % (20.5-51.1); MEAN CORPUSCULAR HEMOGLOBIN 28 pg (27-31); MEAN CORPUSCULAR HGB CONC 32 g/dL (33-37); MEAN CORPUSCULAR VOLUME 88 fL (80-94); MONOCYTES # (AUTO) 0.5 K/uL (0.8-1.0); MONOCYTES % (AUTO) 5.5 % (1.7-9.3); NEUTROPHILS # (AUTO) 6.9 K/uL (1.8-7.7); NEUTROPHILS % (AUTO) 74.7 % (42.2-75.2); PLATELET COUNT (AUTO) 351 K/uL (140-450); RED BLOOD CELL COUNT(AUTO) 3.04 MIL/uL (4.20-6.10); RED CELL DISTRIBUTION WIDTH 15.6 % (11.6-13.7); WHITE BLOOD COUNT (AUTO) 9.2 K/uL (4.8-10.8)
[2016-11-13 09:14] LABS: ANION GAP 11.9 (8-16); CALCIUM 8.7 mg/dL (8.5-10.1); CARBON DIOXIDE 30.2 mmol/L (21-32); CHLORIDE 99 mmol/L (98-107); GLUCOSE 112 mg/dL (74-106); POTASSIUM 4.1 mmol/L (3.5-5.1); SODIUM SERUM 137 mmol/L (136-145); UREA NITROGEN, BLOOD 49 mg/dL (7-18)
[2016-11-13] MEDS: ASCORBIC ACID 500 MG TAB PO SCH ×2 (09:14→20:47)
[2016-11-13] MEDS: METOPROLOL SUCCINATE 50 MG TABER PO SCH (09:14)
[2016-11-13] MEDS: LACTOBACILLUS RHAMNOSUS GG 1 EACH CAP PO SCH (09:15)
[2016-11-13] MEDS: PYRIDOXINE 50 MG TAB PO SCH (09:15)
[2016-11-13] MEDS: CALCIUM CARBONATE 500 MG TAB PO SCH ×2 (09:15→17:00)
[2016-11-13] MEDS: LACTULOSE 20 GM/30 ML UDC PO SCH (09:15)
[2016-11-13] MEDS: levETIRAcetam 500 MG TAB PO SCH ×2 (09:16→20:46)
[2016-11-13] MEDS: SEVELAMER CARBONATE 800 MG TAB PO SCH ×3 (09:16→17:00)
[2016-11-13] MEDS: amLODIPine 5 MG TAB PO SCH (09:16)
[2016-11-13] MEDS: VIT-B COMP/VIT-C/FOLIC ACID 1 TAB PO SCH (09:16)
[2016-11-13 09:17] LABS: PHOSPHORUS 4.6 mg/dL (2.5-4.9)
--- NOTE | 2016-11-13 09:27 | NUR ---
CLARIFIED WITH DR. CANELA REGARDING MEDICATION ORDER FOR PT IF ITS NPO EXCEPT MEDS. WITH ORDERS MADE AND CARRIED OUT. PT MORE AWAKE NOW. ABLE TO TELL HIS NAME AND KNOW WHERE HE IS. PROCEDURE FOR ERCP EXPLAINED TO PT. DR. CANELA CAME TO SEE PT. TURKMEN SPEAKING STAFF CAME TO SPEAK WITH PT. PT VERBALIZED UNDERSTANDING REGARDING PROCEDURE FOR ERCP, STENT REMOVAL AND SIGNED CONSENT.
[2016-11-13 09:38] LABS: CREATININE 4.7 mg/dL (0.7-1.3)
--- NOTE | 2016-11-13 09:52 | NUR ---
[employer] SPAR FINISHER USED TO SPEAK WITH PT. SORORITY MOTHER NAME ROSAMARIA AND ID [id number]. DR. CANELA SPOKE WITH PT THROUGH THE SPAR FINISHER REGARDING PROCEDURE. EXPLAINED RISKS AND BENEFITS FOR THE ERCP, STENT REMOVAL, POLYPECTOMY AND BIOPSY PROCEDURE. PT AGREED AND VERBALIZED UNDERSTANDING. CONSENT OBTAINED.
--- NOTE | 2016-11-13 10:34 | NUR ---
DR. CANELA MADE AWARE OF MAGNESIUM LEVEL ON HIGH 3.3.
--- NOTE | 2016-11-13 11:19 | NUR ---
CHARGE NURSE FOLLOWED UP WITH DIALYSIS FOR SCHEDULED DIALYSIS TODAY. ACCORDING TO DIALYSIS STAFF THEY WILL COME TODAY WILL BE A LITTLE LATE.
--- NOTE | 2016-11-13 11:36 | NUR ---
DR. MANZANO CALLED. MADE AWARE THAT CONSENT WAS OBTAINED FOR ERCP, STENT REMOVAL. AND MADE AWARE THAT PT NPO EXCEPT MEDS AND LAST MED TAKEN AT 0900. ACCORDING TO HE WILL SCHEDULE PT NOW.
--- NOTE | 2016-11-13 11:51 | NUR ---
DR. DAVIS CALLED REGARDING PT. MADE AWARE THAT PT SIGNED CONSENT FOR ERCP STENT REMOVAL AND DR. MANZANO WILL SCHEDULE IT TODAY. ALSO CLARIFIED WITH DR. DAVIS REGARDING ORDER FOR ABDOMINAL ULTRASOUND MADE AWARE THAT PT HAD LAST ABD ULTRASOUND NOVEMBER 11, [address] DUEÑAS[address] DR[address] DAVIS SAID THEN NO NEED FOR ANOTHER ULTRASOUND. AND HE WILL TAKE A LOOK AT THE RESULT FOR THE PREVIOUSLY ORDERED ONE.
--- NOTE | 2016-11-13 12:43 | NUR ---
DR. CANELA MADE AWARE OF LATEST EKG RESULT QUADRIGEMINY.
--- NOTE | 2016-11-13 13:16 | NUR ---
OR STAFF ELLIE LOMAX CAME TO SENIOR WRITER PT. MADE AWARE OF LATEST BLOOD SUGAR OR PT AT 1130 106MG/DL PT VERBALIZED HE IS HUNGRY. PT TRANSFERRED TO OR ON STABLE CONDITION.
--- NOTE | 2016-11-13 15:40 | NUR ---
RECEIVED FROM ER IN BED, S/P ERCP ,STENT REMOVAL, POLYPECTANYAND BIOPSY..T. IS AWAKE WHEN CALL HIS NAME EFERN JAPANESE SPEAKING. HAS AV SHUNT FOR DIALYSIS ON LEFT UPPER ARM. IV FLUID HAS # 22ON RT WRIST INFUSING NS AT 30ML/HR HE ON O2 2L/MIN/NC. Addendum: 11/13/16 at 1805 by Deysi Mayers RN RECEIVED PT FRO OR..
--- NOTE | 2016-11-13 15:45 | NUR ---
DR. FRAZIER AT BED SIDE ORDER RECEIVED TO KEEPPATIENT IN ICU UNTILL 2100 ,TRANSFER BACK TO TELE WHEN VS STABLE.
[2016-11-13] MEDS: FERRIC GLUCONATE 125 MG in NACL 0.9% 100 ML IV SCH (16:30)
--- NOTE | 2016-11-13 16:30 | NUR ---
RECEIVED REPORT FROM IMANI LOMAX.PT WITH LEFT UPPER ARM AV FISTULA WITH HD ONGOING.PT IS ON FACE MASK AT 3L BUT REMOVING IT SO CHANGED TO 6LNC.PT SATURATING 98 PERCENT.PT WANTS TO EAT.RIGHT FOREARM 22 GAUGE IV WITH NS AT 30 ML/H.NSR ON THE MONITOR.PT IS ANURIC.JASKARAN MONITOR.NO CO PAIN.PER PT NO DOLOR.
[2016-11-13] MEDS ORDERED: PROPOFOL 200 MG/20 ML VIAL IV ONE (16:48)
[2016-11-13] MEDS: TAMSULOSIN 0.4 MG CAP PO SCH (17:30)
[2016-11-13] MEDS: INSULIN LISPRO SLIDING SCALE 100 UNITS/ML VIAL SUBQ PRN (18:00)
--- NOTE | 2016-11-13 19:32 | NUR ---
PT STILL IN ICU, DIALYSIS STILL ON GOING. ENDORSED TO NEXT SHIFT TO HAVE ICU WRITE DOWN 1800 INTERVENTION. ENDORSED TO NEXT SHIFT FOR CONTINUITY OF CARE.
[2016-11-13] MEDS: SENNA 8.6 MG TAB PO SCH (20:47)
[2016-11-13] MEDS: ACETAMINOPHEN 325 MG TAB PO PRN (20:47)
[2016-11-13] MEDS: SIMVASTATIN 20 MG TAB PO SCH (20:48)
--- NOTE | 2016-11-13 21:10 | NUR ---
report given to charly
--- NOTE | 2016-11-13 21:15 | NUR ---
TRANSFERRED PATIENT TO [facility] WITH A MONITOR.NSR WITH BBB.2LNC.RIGHT FOREARM 22 GAUGE PATENT AND INTACT.
--- NOTE | 2016-11-13 21:20 | NUR ---
RECEIVED REPORT FROM ICU NURSE. PT RESTING IN BED, AOX3, ABLE TO VERBALIZE NEEDS, PT REORIENTED TO SITUATION AND SURROUNDINGS. VS NOTED. MAILER IN PLACE. SPO2 99% AT 2L O2 NC. LEFT AV SHUNT NOTED, LIMB RESTRICTIONS AND PRECAUTIONS MAINTAINED. PT C/O PAIN. PT ALREADY MEDICATED WITH TYLENOL IN ICU, WILL REASSESS. IV ACCESS ASYMPTOMATIC, PATENT AND INTACT. SALINE LOCKED. DISCUSSED PLAN OF CARE WITH PT. PT VERBALIZED UNDERSTANDING, WILL NEED CONSTANT REINFORCEMENT. SAFETY MEASURES ENSURED. CALL LIGHT WITHIN REACH. WILL CONTINUE TO MONITOR.
--- NOTE | 2016-11-13 22:42 | NUR ---
CALLED DR ESPINOZA, MANAGER URGENT CARE FOR DR VENEGAS. MADE AWARE OF HELD MEDICATIONS REGLAN, FERRIC GLUCONATE, FLOMAX, CALCIUM CARBONATE AND PHOSLO THAT WERE HELD BEFORE DIALYSIS WHEN PT WAS IN ICU. STATED HE WILL CALL THE INTERNS.
[2016-11-14] VITALS: BP 143/59
--- NOTE | 2016-11-14 00:50 | NUR ---
PT SLEEPING. CONDITION STABLE. ALL NEEDS MET. SAFETY MEASURES ENSURED. CALL LIGHT WITHIN REACH.
[2016-11-14] MEDS: ZOLPIDEM 10 MG TAB PO PRN (02:01)
[2016-11-14] MEDS: MORPHINE SULFATE 2 MG/ML SYR IVP PRN ×2 (02:01→16:13)
--- NOTE | 2016-11-14 02:01 | NUR ---
PT TURNED AND REPOSITIONED, OFFLOADED PRESSURE AREAS. PT TOLERATED WELL. PT C/O INSOMNIA. ADMINISTERED AMBIEN WITH EDUCATION. PT C/O PAIN. SEE PAIN ASSESSMENT. ADMINISTERED MORPHINE ORDERED. SAFETY MEASURES ENSURED. CALL LIGHT WITHIN REACH.
[2016-11-14 04:00] VITALS: BP 135/63
--- NOTE | 2016-11-14 04:15 | NUR ---
PT TURNED AND REPOSITIONED, OFFLOADED PRESSURE AREAS. PT SLEEPING COMFORTABLY. CONDITION STABLE. ALL NEEDS MET. SAFETY MEASURES ENSURED. CALL LIGHT WITHIN REACH. WILL CONTINUE TO MONITOR.
--- NOTE | 2016-11-14 05:45 | NUR ---
PT SLEEPING, PT IS DROWSY WHEN ATTEMPTING TO WAKE. ATTEMPTED TO ADMINISTER DUE MEDICATIONS, BUT PT IS DROWSY AND DISORIENTED AT THIS TIME TO TAKE DUE MEDICATIONS. WILL ATTEMPT TO ADMINISTER AGAIN.
[2016-11-14 05:53] LABS: BASOPHILS # (AUTO) 0.1 K/uL (0.00-0.22); BASOPHILS % (AUTO) 0.7 % (0.0-2.0); EOSINOPHILS # (AUTO) 0.4 K/uL (0-0.4); EOSINOPHILS % (AUTO) 3.7 % (0.0-4.0); HEMATOCRIT 29.3 % (36-52); HEMOGLOBIN 9.4 g/dL (12.0-18.0); LYMPHOCYTES # (AUTO) 0.5 K/uL (2.0-11.5); MEAN CORPUSCULAR HEMOGLOBIN 29 pg (27-31); MEAN CORPUSCULAR HGB CONC 32 g/dL (33-37); MEAN CORPUSCULAR VOLUME 89 fL (80-94); MONOCYTES # (AUTO) 0.7 K/uL (0.8-1.0); MONOCYTES % (AUTO) 7.2 % (1.7-9.3); NEUTROPHILS # (AUTO) 8.2 K/uL (1.8-7.7); NEUTROPHILS % (AUTO) 83.4 % (42.2-75.2); PLATELET COUNT (AUTO) 395 K/uL (140-450); RED BLOOD CELL COUNT(AUTO) 3.28 MIL/uL (4.20-6.10); RED CELL DISTRIBUTION WIDTH 15.6 % (11.6-13.7)
[2016-11-14] MEDS: LEVOTHYROXINE 0.075 MG TAB PO SCH (06:30)
[2016-11-14] MEDS: FAMOTIDINE 20 MG TAB PO SCH (06:30)
--- NOTE | 2016-11-14 06:30 | NUR ---
PT STILL SLEEPING SOUNDLY, PT IS DROWSY WHEN ATTEMPTING TO WAKE. ATTEMPTED TO ADMINISTER DUE MEDICATIONS AGAIN, BUT PT IS STILL DROWSY AND DISORIENTED AT THIS TIME TO TAKE DUE MEDICATIONS. WILL ENDORSE TO AM NURSE.
[2016-11-14 06:31] LABS: ANION GAP 10.7 (8-16); CALCIUM 8.6 mg/dL (8.5-10.1); CHLORIDE 98 mmol/L (98-107); CREATININE 3.3 mg/dL (0.7-1.3); GLUCOSE 157 mg/dL (74-106); POTASSIUM 3.7 mmol/L (3.5-5.1); SODIUM SERUM 138 mmol/L (136-145); UREA NITROGEN, BLOOD 23 mg/dL (7-18)
[2016-11-14] MEDS: BLOOD GLUCOSE MONITORING 1 DEV DEV FS SCH ×4 (06:33→20:55)
[2016-11-14 07:16] LABS: WHITE BLOOD COUNT (AUTO) 9.9 K/uL (4.8-10.8)
[2016-11-14] MEDS: ALBUTEROL SULFATE/IPRATROPIU 3 ML SOL IH SCH ×3 (07:28→18:00)
--- NOTE | 2016-11-14 07:28 | NUR ---
ENDORSED PLAN OF CARE TO AM NURSE. PT SLEEPING COMFORTABLY. CONDITION STABLE.
--- NOTE | 2016-11-14 07:29 | NUR ---
RECEIVED PT IN BED. ASLEEP. AROUSABLE TO TOUCH. PT SLEEPY. NO SOB NOTED. ON 2LPM O2 VIA NC. DENIES ANY PAIN OR DISCOMFORT AT THIS TIME. PT BEDBOUND. POSITIVE BOWEL SOUNDS NOTED ON FOUR QUADRANTS. SAFETY PRECAUTION IN PLACE. CALL LIGHT WITHIN REACH.
[2016-11-14 08:00] VITALS: BP 148/75
--- NOTE | 2016-11-14 08:00 | NUR ---
PT HAVE A TEMPERATURE OF 100.7. COOLING MEASURES PROVIDED. MEDICATED TYLENOL PRN FOR TEMP >100.4. WILL REASSESS.
[2016-11-14] MEDS: ACETAMINOPHEN 325 MG TAB PO PRN ×2 (08:29→20:06)
[2016-11-14] MEDS: LACTOBACILLUS RHAMNOSUS GG 1 EACH CAP PO SCH (08:30)
[2016-11-14] MEDS: ASCORBIC ACID 500 MG TAB PO SCH ×2 (08:30→20:07)
[2016-11-14] MEDS: PYRIDOXINE 50 MG TAB PO SCH (08:30)
[2016-11-14] MEDS: METOCLOPRAMIDE 10 MG TAB PO SCH ×3 (08:30→16:12)
[2016-11-14] MEDS: amLODIPine 5 MG TAB PO SCH (08:30)
--- NOTE | 2016-11-14 08:30 | NUR ---
DR. CANELA MADE AWARE THAT PT HAS A TEMPERATURE AND MEDICATED ORDERED PRN. DR. CANELA CAME TO SEE PT WITH DR. SWANSON WITH ORDERS MADE AND CARRIED OUT.
[2016-11-14] MEDS: CALCIUM CARBONATE 500 MG TAB PO SCH ×2 (08:31→16:13)
[2016-11-14] MEDS: METOPROLOL SUCCINATE 50 MG TABER PO SCH (08:31)
[2016-11-14] MEDS: CALCIUM ACETATE 667 MG TAB PO SCH ×2 (08:31→16:13)
[2016-11-14] MEDS: VIT-B COMP/VIT-C/FOLIC ACID 1 TAB PO SCH (08:32)
[2016-11-14] MEDS: levETIRAcetam 500 MG TAB PO SCH ×2 (08:32→20:06)
[2016-11-14] MEDS: LACTULOSE 20 GM/30 ML UDC PO SCH (08:32)
[2016-11-14] MEDS: SEVELAMER CARBONATE 800 MG TAB PO SCH ×3 (08:32→16:12)
[2016-11-14] MEDS ORDERED: LEVOFLOXACIN 750 MG/D5W PREMIX 150 ML IV SCH (09:35)
[2016-11-14 12:00] VITALS: BP 122/48
--- NOTE | 2016-11-14 12:00 | NUR ---
T 100.5 RR @ 28 BREATH SOUDSN BILATERAL BASES RALES WITH GOOD CHEST RISE SATURATION 95% ON SUPPLEMENTAL OXYGEN AT 4 LPM VIA NC TITRATION ORDER KEEP O2 GREATER THAN 90% POST HHN THERAPY DECREASED FIO2 TO 3 LPM JESSICA/RN NOTIFIED SNOW REMOVAL SUPERVISOR TO MONITOR
[2016-11-14] MEDS: CLINDAMYCIN 600 MG in DEXTROSE 5% 50 ML IV SCH ×3 (12:42→23:13)
[2016-11-14] MEDS: INSULIN LISPRO SLIDING SCALE 100 UNITS/ML VIAL SUBQ PRN ×2 (12:46→16:52)
--- NOTE | 2016-11-14 13:01 | NUR ---
DR. CANELA MADE AWARE THAT PT DOES NOT HAVE URINE OUTPUT FOR UA. PT IS A DIALYSIS PT. ALSO MADE AWARE THAT PT DOES NOT TOLERATE REGULAR DIET WELL. ORDERS MADE AND CARRIED OUT.
[2016-11-14 13:36] LABS: APPEARANCE,URINE HAZY (CLEAR); BILIRUBIN,URINE 1+ (NEGATIVE); BLOOD, URINE TRACE-L (NEGATIVE); LEUKOCYTE ESTERASE ,URINE NEGATIVE (NEGATIVE); NITRITE, URINE NEGATIVE (NEGATIVE); PROTEIN,URINE 2+ (NEGATIVE); UGLUCOSE NEGATIVE (NEGATIVE); UROBILINOGEN,URINE 0.2 EU/dL (0.2 - 1)
[2016-11-14 13:38] LABS: COLOR,URINE AMBER (YELLOW)
[2016-11-14 13:45] LABS: BACTERIA,URINE OCCASSIONAL /HPF (None Seen); ICTOTEST POSITIVE (NEGATIVE); RBC,URINE 0-5 (RARE) /HPF (0-5); SQUAMOUS EPITHELIAL CELL,UR 0-3 (FEW) /LPF (0-3 (FEW)); WBC,URINE 0-5 (RARE) /HPF (0-5)
[2016-11-14 13:46] LABS: MUCUS,URINE 1+ /LPF (None Seen); URINE AMORPHOUS URATE 1+ /HPF (None Seen)
[2016-11-14] MEDS: FERRIC GLUCONATE 125 MG in NACL 0.9% 100 ML IV SCH (15:07)
[2016-11-14 16:00] VITALS: BP 130/58
--- NOTE | 2016-11-14 16:00 | NUR ---
PT COOLING MEASURES CONTINUED TO PROVIDE TO PT WITH LATEST TEMP AT 100. TEMP GOING DOWN.
[2016-11-14] MEDS: TAMSULOSIN 0.4 MG CAP PO SCH (16:50)
--- NOTE | 2016-11-14 19:32 | NUR ---
PT KEPT, CLEAN,DRY AND COMFORTABLE, NEEDS ATTENDED. ENDORSED TO NEXT SHIFT ON STABLE CONDITION FOR CONTINUITY OF CARE.
--- NOTE | 2016-11-14 19:35 | NUR ---
RECEIVED PT WITH EYES CLOSED, VERBALLY RESPONSIVE BUT LETHARGIC, UKRAINIAN SPEAKING ONLY, DENIES PAIN AT THIS TIME, VITAL SIGNS TAKEN, TEMP-101.7, CONTINUE COOLING MEASURES, WILL MEDICATE WITH TYLENOL PO, IVF AT TKO RATE, HEMODIALYSIS PT, LEFT ARM AV SHUNT INTACT WITH DRESSING DRY AND INTACT, SEIZURE PRECAUTION WITH SIDE RAILS UP AND PADDED, BED ALARM ON, CALL LIGHT WITHIN REACH.
[2016-11-14 20:00] VITALS: BP 125/58
[2016-11-14] MEDS: SENNA 8.6 MG TAB PO SCH (20:06)
[2016-11-14] MEDS: SIMVASTATIN 20 MG TAB PO SCH (20:06)
--- NOTE | 2016-11-14 20:10 | NUR ---
BLOOD SUGAR CHECKED WITH 82 RESULT, DUE PO MEDICATIONS AND TYLENOL CRUSHED AND GIVEN WITH APPLE SAUCE, APPLE JUICE GIVEN, TOLERATED WELL BUT POOR APPETITE, ON ASPIRATION PRECAUTION, ALL NEEDS ANTICIPATED.
--- NOTE | 2016-11-14 21:05 | NUR ---
TEMP RECHECKED- 101.5 ORALLY, PAGED DR ESPINOZA AND MADE AWARE, WILL CHANGE TYLENOL TO Q4H PRN AND CONTINUE COOLING MEASURES.
--- NOTE | 2016-11-14 23:44 | NUR ---
PT SLEEPING, OPEN EYES TO TOUCH AND VERBALLY RESPONSIVE BUT LETHARGIC, VITAL SIGNS STABLE, TEMP-99.4, DUE IV CLINDAMYCIN ADMINISTERED, DR GOVEA HERE AND SAW THE PT, WITH NEW ORDER FOR HEMODIALYSIS TOMORROW, MARIANNE MATHIS CALLED [facility] AND TALKED TO FANG REGARDING HEMODIALYSIS TOMORROW.
[2016-11-15] VITALS: BP 124/46
[2016-11-15] MEDS: MORPHINE SULFATE 2 MG/ML SYR IVP PRN ×2 (03:47→08:54)
--- NOTE | 2016-11-15 03:50 | NUR ---
PT MOANING, IN PAIN, VITAL SIGNS STABLE, TEMP-99.0, MEDICATED PRN FOR PAIN, REPOSITION AND OFFLOAD PRESSURE AREAS, MONITORED CLOSELY.
[2016-11-15 04:00] VITALS: BP 135/65
[2016-11-15 05:47] LABS: HEMATOCRIT 26.7 % (36-52); HEMOGLOBIN 8.6 g/dL (12.0-18.0); MEAN CORPUSCULAR HEMOGLOBIN 29 pg (27-31); MEAN CORPUSCULAR HGB CONC 32 g/dL (33-37); MEAN CORPUSCULAR VOLUME 89 fL (80-94); PLATELET COUNT (AUTO) 308 K/uL (140-450); RED CELL DISTRIBUTION WIDTH 15.9 % (11.6-13.7)
[2016-11-15] MEDS: CLINDAMYCIN 600 MG in DEXTROSE 5% 50 ML IV SCH ×4 (05:52→23:49)
[2016-11-15 06:03] LABS: ANION GAP 11.8 (8-16); CALCIUM 8.9 mg/dL (8.5-10.1); CARBON DIOXIDE 31.3 mmol/L (21-32); CHLORIDE 97 mmol/L (98-107); GLUCOSE 105 mg/dL (74-106); POTASSIUM 4.1 mmol/L (3.5-5.1); SODIUM SERUM 136 mmol/L (136-145); UREA NITROGEN, BLOOD 33 mg/dL (7-18)
[2016-11-15 06:05] LABS: CREATININE 5.2 mg/dL (0.7-1.3)
[2016-11-15] MEDS: FAMOTIDINE 20 MG TAB PO SCH (06:13)
[2016-11-15] MEDS: LEVOTHYROXINE 0.075 MG TAB PO SCH (06:13)
[2016-11-15 06:26] LABS: NEUTROPHILS % (MANUAL) 82 (43-65)
--- NOTE | 2016-11-15 06:26 | NUR ---
PT SLEEPING, AROUSABLE BUT LETHARGIC, OPENS EYES, DUE MEDICATION CRUSHED AND GIVEN WITH APPLE SAUCE, TOLERATED WELL, MONITORED CLOSELY.
[2016-11-15 06:27] LABS: BAND % (MANUAL) 10 % (0-8); LYMPHOCYTES % (MANUAL) 5 % (20-46); MONOCYTES % (MANUAL) 3 % (5-12)
[2016-11-15] MEDS: BLOOD GLUCOSE MONITORING 1 DEV DEV FS SCH ×4 (06:32→21:02)
[2016-11-15] MEDS: CALCIUM ACETATE 667 MG TAB PO SCH ×2 (06:32→17:29)
[2016-11-15] MEDS: METOCLOPRAMIDE 10 MG TAB PO SCH ×3 (06:32→17:30)
[2016-11-15] MEDS: ALBUTEROL SULFATE/IPRATROPIU 3 ML SOL IH SCH ×3 (06:54→19:44)
--- NOTE | 2016-11-15 07:20 | NUR ---
PT SLEEPING, NO SIGNS OF DISTRESS, FOR HEMODIALYSIS TODAY, REPORT GIVEN TO DAMI LOPEZ FOR CONTINUITY OF CARE.
--- NOTE | 2016-11-15 07:27 | NUR ---
RECEIVED PT IN BED. ASLEEP. AROUSABLE TO VOICE. NO SOB NOTED ON O2 AT 3LPM NC SATING AT 97%. DENIES ANY PAIN OR DISCOMFORT AT THIS TIME. POSITIVE BOWEL SOUND NOTED ON FOUR QUADRANTS. PT ON BEDREST. SAFETY PRECAUTION IN PLACE. CALL LIGHT WITHIN REACH.
[2016-11-15 08:00] VITALS: BP 121/48
[2016-11-15] MEDS: CALCIUM CARBONATE 500 MG TAB PO SCH ×2 (08:00→17:30)
[2016-11-15] MEDS: SEVELAMER CARBONATE 800 MG TAB PO SCH ×3 (08:00→17:29)
--- NOTE | 2016-11-15 08:00 | NUR ---
DUE MEDS AT 0800 AND 0900 HELD DUE TO SCHEDULED DIALYSIS AT 1000.
[2016-11-15] MEDS: amLODIPine 5 MG TAB PO SCH (09:00)
[2016-11-15] MEDS: METOPROLOL SUCCINATE 50 MG TABER PO SCH (09:00)
[2016-11-15] MEDS: VIT-B COMP/VIT-C/FOLIC ACID 1 TAB PO SCH (09:00)
[2016-11-15] MEDS: PYRIDOXINE 50 MG TAB PO SCH (09:00)
[2016-11-15] MEDS ORDERED: LACTOBACILLUS RHAMNOSUS GG 1 EACH CAP PO SCH (09:00)
[2016-11-15] MEDS: LACTULOSE 20 GM/30 ML UDC PO SCH (09:00)
[2016-11-15] MEDS: levETIRAcetam 500 MG TAB PO SCH ×2 (09:00→21:14)
[2016-11-15] MEDS: ASCORBIC ACID 500 MG TAB PO SCH ×2 (09:00→21:15)
[2016-11-15] MEDS: LACTOBACILLUS RHAMNOSUS GG 1 EACH CAP PO SCH (09:00)
--- NOTE | 2016-11-15 09:40 | NUR ---
SPEECH THERAPIST SANGEETHA CAME TO SEE PT TO EVALUATE SWALLOWING.
--- NOTE | 2016-11-15 09:45 | NUR ---
PROPERTY ASSESSMENT MONITOR note (bedside swallow evaluation completed) [id number]. Bedside swallow evaluation completed, please see report for details. PROPERTY ASSESSMENT MONITOR provided pt with education regarding purpose of evaluation and rationale for recommendations. Pt lethargic and required maximal cues to participate with swallow evaluation, so pt unlikely to have benefitted optimally with education provided. No family present at this time. Recommend: 1) pureed textures 2) nectar-thick liquids 3) 100% feeding assistance 4) STRICT aspiration precautions (including pt must be FULLY awake/alert/upright for any PO intakes, alternate small/slow bites and sips, stop PO if pt becomes sleepy/less alert/SOB/coughing) 5) PROPERTY ASSESSMENT MONITOR to f/u for dysphagia/diet tolerance 1-2 x week x 2 weeks as pt willing/able to participate safely. G-codes: [id number] [facility] NOMS level 3 PVE for d/w RN (Yolanda) prior to and following bedside swallow evaluation completion. PROPERTY ASSESSMENT MONITOR posted safe swallow strategies sign above pt's HOB.
--- NOTE | 2016-11-15 09:50 | NUR ---
LIMA SHAW CAME TO DO DIALYSIS.
--- NOTE | 2016-11-15 11:48 | NUR ---
DUE ANTIBIOTIC CLEOCIN IVPB GIVEN TO DIALYSIS NURSE TO ADMINISTER.
[2016-11-15 12:00] VITALS: BP 108/50
--- NOTE | 2016-11-15 12:00 | NUR ---
PER DIALYSIS NURSE COLIN, HOLD DUE INSULIN DOSE FOR NOW SINCE DIALYSIS ON GOING.
--- NOTE | 2016-11-15 12:00 | NUR ---
HEMODIALYSIS IN PROGRESS
--- NOTE | 2016-11-15 12:01 | NUR ---
DIALYSIS NURSE FEEDING PT. NO COUGHING OR SOB NOTED AT THIS TIME. ASPIRATION PRECAUTION IN PLACE.
--- NOTE | 2016-11-15 12:30 | NUR ---
DUE PO MEDS HELD DUE TO DIALYSIS ONGOING.
--- NOTE | 2016-11-15 12:39 | NUR ---
HEMODIALYSIS REMAINS IN PROGRESS HHN THERAPY GIVEN ORDERED SUPPLEMENTAL OXYGEN AT 3 LPM VIA NC
--- NOTE | 2016-11-15 13:50 | NUR ---
DIALYSIS FINISHED WITH 2.6L OUTPUT BY DIALYSIS NURSE COLIN LOMAX.
--- NOTE | 2016-11-15 13:52 | NUR ---
DIALYSIS FINISHED. NO SOB NOTED. NO SIGNS AND SYMPTOMS OF ACUTE DISTRESS NOTED AT THIS TIME. PT AWAKE. DENIES ANY PAIN OR DISCOMFORT AT THIS TIME. LATEST VS FOLLOWS T 99, RR21, BP 105/46, HR 86, O2 SAT AT 94%. LEFT AV SHUNT DRESSING DRY AND INTACT. NO SIGNS OF ACUTE BLEEDING OR SWELLING NOTED.
[2016-11-15] MEDS ORDERED: FERRIC GLUCONATE 125 MG in NACL 0.9% 100 ML IV SCH (15:00)
[2016-11-15 15:02] LABS: ALBUMIN 2.4 g/dL (3.4-5.0); BILIRUBIN,DIRECT 0.2 mg/dL (0.0-0.3); TOTAL BILIRUBIN 0.5 mg/dL (0.0-1.0); TOTAL PROTEIN, SERUM 6.4 g/dL (6.4-8.2)
--- NOTE | 2016-11-15 15:34 | NUR ---
TV WAS TURNED TO ENGLISH CHANNEL SEEN PT WATCHING TV FOR SHORT PERIODS. PT APPEARS SLEEPY, PUT AROUSABLE TO VOICE AND OPEN EYES. COOPERATIVE.
[2016-11-15 16:00] VITALS: BP 122/63
--- NOTE | 2016-11-15 16:19 | NUR ---
CLINICAL REVIEW DONE.
[2016-11-15] MEDS: INSULIN LISPRO SLIDING SCALE 100 UNITS/ML VIAL SUBQ PRN ×2 (17:07→21:02)
[2016-11-15] MEDS: TAMSULOSIN 0.4 MG CAP PO SCH (17:29)
--- NOTE | 2016-11-15 18:00 | NUR ---
STUDENT NURSE ASSISTED PT WITH EATING DINNER. PUREE DIET TOLERATED WELL. NO SOB NOTED. NO COUGHING. PT CONSUMED 90% OF HIS DINNER.
--- NOTE | 2016-11-15 19:36 | NUR ---
PT KEPT CLEAN, DRY AND COMFORTABLE. NEEDS ATTENDED. ENDORSED TO NEXT SHIFT ON STABLE CONDITION FOR CONTINUITY OF CARE.
--- NOTE | 2016-11-15 19:38 | NUR ---
RECEIVED PT FROM JESSICA RN PT [employer] [id number] ON TELEMETRY SR BBB HL ON RT FA PATENT;, AV SHUNT FOR DIALYSIS ON LEFT UA , REPOLSITIONED INITIAL ASSESSMENT DONE
[2016-11-15 20:00] VITALS: BP 109/50
[2016-11-15] MEDS: SENNA 8.6 MG TAB PO SCH (21:15)
[2016-11-15] MEDS: SIMVASTATIN 20 MG TAB PO SCH (21:16)
--- NOTE | 2016-11-15 21:30 | NUR ---
BLOOD SUGAR TEST 171 COVERAGE PROTOCOL
[2016-11-16] VITALS: BP 104/43
--- NOTE | 2016-11-16 | NUR ---
PT SLEEPING WELL NOT DISTRESS NOTED NOT FEVER REMAIN STABLE
[2016-11-16 04:00] VITALS: BP 122/55
--- NOTE | 2016-11-16 04:00 | NUR ---
PT HAS BEEN REPOSITIONED,, ON TELEMETRY SR BBB SPONGE BATH GIVEN, LINEN CHANGED
--- NOTE | 2016-11-16 06:00 | NUR ---
A NEW IV IS INSERTED ON RT AC GAUGE # 22
[2016-11-16] MEDS: CLINDAMYCIN 600 MG in DEXTROSE 5% 50 ML IV SCH ×2 (06:13→11:55)
[2016-11-16] MEDS: LEVOTHYROXINE 0.075 MG TAB PO SCH (06:15)
[2016-11-16] MEDS: FAMOTIDINE 20 MG TAB PO SCH (06:15)
[2016-11-16] MEDS: BLOOD GLUCOSE MONITORING 1 DEV DEV FS SCH ×3 (06:19→16:53)
[2016-11-16 06:37] LABS: BASOPHILS # (AUTO) 0.1 K/uL (0.00-0.22); BASOPHILS % (AUTO) 1.1 % (0.0-2.0); EOSINOPHILS # (AUTO) 0.2 K/uL (0-0.4); EOSINOPHILS % (AUTO) 3.2 % (0.0-4.0); HEMATOCRIT 25.8 % (36-52); HEMOGLOBIN 8.2 g/dL (12.0-18.0); LYMPHOCYTES % (AUTO) 13.6 % (20.5-51.1); MEAN CORPUSCULAR HEMOGLOBIN 28 pg (27-31); MEAN CORPUSCULAR HGB CONC 32 g/dL (33-37); MEAN CORPUSCULAR VOLUME 89 fL (80-94); MONOCYTES # (AUTO) 0.9 K/uL (0.8-1.0); MONOCYTES % (AUTO) 11.8 % (1.7-9.3); NEUTROPHILS # (AUTO) 5.4 K/uL (1.8-7.7); NEUTROPHILS % (AUTO) 70.3 % (42.2-75.2); PLATELET COUNT (AUTO) 306 K/uL (140-450); RED CELL DISTRIBUTION WIDTH 15.8 % (11.6-13.7); WHITE BLOOD COUNT (AUTO) 7.6 K/uL (4.8-10.8)
[2016-11-16] MEDS: ALBUTEROL SULFATE/IPRATROPIU 3 ML SOL IH SCH ×2 (06:51→11:38)
--- NOTE | 2016-11-16 06:51 | NUR ---
BLOOD SUGAR TEST 118 NOT COVERAGE;, PT REPOSITIONED Q2H NOT DISTRESS NOTED
[2016-11-16 06:57] LABS: ANION GAP 8.3 (8-16); CALCIUM 8.5 mg/dL (8.5-10.1); CARBON DIOXIDE 33.3 mmol/L (21-32); CHLORIDE 96 mmol/L (98-107); GLUCOSE 129 mg/dL (74-106); POTASSIUM 3.6 mmol/L (3.5-5.1); SODIUM SERUM 134 mmol/L (136-145); UREA NITROGEN, BLOOD 24 mg/dL (7-18)
--- NOTE | 2016-11-16 07:30 | NUR ---
RECEIVED REPORT FROM DAMI WILLIAM. 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
[2016-11-16 08:00] VITALS: BP 120/53
[2016-11-16] MEDS: SEVELAMER CARBONATE 800 MG TAB PO SCH ×2 (08:06→11:54)
[2016-11-16] MEDS: PYRIDOXINE 50 MG TAB PO SCH (08:06)
[2016-11-16] MEDS: CALCIUM ACETATE 667 MG TAB PO SCH (08:06)
[2016-11-16] MEDS: levETIRAcetam 500 MG TAB PO SCH (08:07)
[2016-11-16] MEDS: CALCIUM CARBONATE 500 MG TAB PO SCH (08:07)
[2016-11-16] MEDS: LACTOBACILLUS RHAMNOSUS GG 1 EACH CAP PO SCH (08:07)
[2016-11-16] MEDS: METOCLOPRAMIDE 10 MG TAB PO SCH ×2 (08:07→11:55)
--- NOTE | 2016-11-16 08:07 | NUR ---
DUE MEDICATIONS GIVEN, PT TOLERATED WELL, CALL LIGHT WITHIN REACH, WILL CONTINUE TO MONITOR.
[2016-11-16] MEDS: LACTULOSE 20 GM/30 ML UDC PO SCH (08:08)
[2016-11-16] MEDS: METOPROLOL SUCCINATE 50 MG TABER PO SCH (08:08)
[2016-11-16] MEDS: VIT-B COMP/VIT-C/FOLIC ACID 1 TAB PO SCH (08:08)
[2016-11-16] MEDS: ASCORBIC ACID 500 MG TAB PO SCH (08:08)
[2016-11-16] MEDS: amLODIPine 5 MG TAB PO SCH (08:20)
[2016-11-16] MEDS ORDERED: LACTOBACILLUS RHAMNOSUS GG 1 EACH CAP PO SCH (09:00)
[2016-11-16] MEDS ORDERED: LEVOFLOXACIN 500 MG/D5W PREMIX 150 ML IV SCH (10:00)
--- NOTE | 2016-11-16 10:10 | NUR ---
PT SLEEPING IN BED AT THIS TIME, CALL LIGHT WITHIN REACH.
[2016-11-16] MEDS ORDERED: CLIN300C2 PO (11:26)
[2016-11-16] MEDS ORDERED: FERR325E14 PO (11:26)
[2016-11-16] MEDS ORDERED: ASCO500T45 PO (11:26)
[2016-11-16] MEDS ORDERED: LEVO750T2 PO (11:26)
--- NOTE | 2016-11-16 11:40 | NUR ---
PT SITTING ON CHAIR AT THE SIDE OF THE BED, PT IS RECEIVED A BREATHING TREATMENT AT THIS TIME.
--- NOTE | 2016-11-16 11:40 | NUR ---
PHYSICAL THERAPY IS AT PATIENT'S BEDSIDE WORKING WITH PATIENT.
[2016-11-16] MEDS: INSULIN LISPRO SLIDING SCALE 100 UNITS/ML VIAL SUBQ PRN (11:48)
[2016-11-16 12:00] VITALS: BP 136/59
--- NOTE | 2016-11-16 13:19 | NUR ---
1230 CALL PLACED TO [facility] [phone] AND SPOKE WITH JACOB AND SET UP W/C TRANSPORT WITH O2 FOR PT TO TRANSFER BACK TO [facility]. CALLED BACK AND PROVIDED [facility] #[id number]. NURSE DENA INFORMED OF OPHTHALMIC TECHNOLOGIST TIME WILL BE AT 3PM
--- NOTE | 2016-11-16 13:40 | NUR ---
PT RESTING IN BED WATCHING TV, NO S/S OF RESPIRATORY DISTRESS OR DISCOMFORT NOTED, IS AT BEDSIDE, CALL LIGHT IS WITHIN REACH.
--- NOTE | 2016-11-16 14:30 | NUR ---
CALLED [facility] AT [phone], GAVE REPORT TO KRISTOPHER, I LET HER KNOW THE PATIENT WAS BEING PICKED UP AT 1500.
--- NOTE | 2016-11-16 15:00 | NUR ---
DISCHARGE INSTRUCTIONS GIVEN, PT ID WRIST BAND REMOVED, IV REMOVED, CATHETER TIP INTACT. PATIENT'S IS AT BEDSIDE.
[2016-11-16 16:00] VITALS: BP 104/48
--- NOTE | 2016-11-16 16:01 | NUR ---
* ST D/C NOTE * D/C pt from skilled [facility] [employer] [employer] services secondary to pt discharging to lower level of care back to prior environment, [facility] in [place], [place], as of 1500 today, 11/16/16. No further ST follow up recommended at this time. PVE
--- NOTE | 2016-11-16 17:00 | NUR ---
[facility] HERE TO SENIOR USER EXPERIENCE ARCHITECT PATIENT, PT STABLE UPON DISCHARGE ACCOMPANIED BY HIS AND TRANSPORT.
== END 2016-11-16 17:00 | DRG 177 ==
LOC: MED 14:49 → MTU 16:58 → MIC 11-13 16:01 → MTU 11-13 21:20
PROVIDERS: ADMIT Family Medicine; ATTEND Family Medicine
PROC: 30233N1 Transfusion of Nonautologous Red Blood Cells into Peripheral Vein, Percutaneous Approach (ICD-10-PCS; 2016-11-11)
PROC: 5A1D60Z (ICD-10-PCS; 2016-11-11)
PROC: 0DB68ZX Excision of Stomach, Via Natural or Artificial Opening Endoscopic, Diagnostic (ICD-10-PCS; principal; 2016-11-12 13:40)
PROC: 0FPB8DZ Removal of Intraluminal Device from Hepatobiliary Duct, Via Natural or Artificial Opening Endoscopic (ICD-10-PCS; 2016-11-13)
PROC: 0F798ZZ Dilation of Common Bile Duct, Via Natural or Artificial Opening Endoscopic (ICD-10-PCS; 2016-11-13)
DX: J69.0 Pneumonitis due to inhalation of food and vomit (principal); K85.90 Acute pancreatitis without necrosis or infection, unspecified; I21.4 Non-ST elevation (NSTEMI) myocardial infarction; K76.7 Hepatorenal syndrome; N17.0 Acute kidney failure with tubular necrosis; N18.6 End stage renal disease; I50.43 Acute on chronic combined systolic (congestive) and diastolic (congestive) heart failure; E43 Unspecified severe protein-calorie malnutrition; J96.01 Acute respiratory failure with hypoxia; E87.1 Hypo-osmolality and hyponatremia; I42.0 Dilated cardiomyopathy; K83.0 Cholangitis; K72.90 Hepatic failure, unspecified without coma; E83.39 Other disorders of phosphorus metabolism; E83.51 Hypocalcemia; E11.65 Type 2 diabetes mellitus with hyperglycemia; E03.9 Hypothyroidism, unspecified; D64.9 Anemia, unspecified; K21.9 Gastro-esophageal reflux disease without esophagitis; G40.909 Epilepsy, unspecified, not intractable, without status epilepticus; N40.0 Benign prostatic hyperplasia without lower urinary tract symptoms; R00.1 Bradycardia, unspecified; D49.0 Neoplasm of unspecified behavior of digestive system; I25.10 Atherosclerotic heart disease of native coronary artery without angina pectoris; E11.51 Type 2 diabetes mellitus with diabetic peripheral angiopathy without gangrene; E11.22 Type 2 diabetes mellitus with diabetic chronic kidney disease; K29.70 Gastritis, unspecified, without bleeding; D63.1 Anemia in chronic kidney disease; I12.9 Hypertensive chronic kidney disease with stage 1 through stage 4 chronic kidney disease, or unspecified chronic kidney disease; N18.9 Chronic kidney disease, unspecified; Z90.49 Acquired absence of other specified parts of digestive tract; Z99.2 Dependence on renal dialysis; Z88.0 Allergy status to penicillin; Z79.899 Other long term (current) drug therapy; Z79.82 Long term (current) use of aspirin; Z79.4 Long term (current) use of insulin; Z87.442 Personal history of urinary calculi
CPT/HCPCS: 36415; 71010; 74330; 76700; 80048; 80053; 80076; 81001; 82140; 82150; 82272; 82728; 82948; 83036; 83540; 83605; 83615; 83690; 83735; 83880; 84100; 84436; 84443; 84484; 84550; 85025; 85045; 85610; 85730; 86677; 86886; 86900; 86901; 86920; 87040; 87081; 87086; 90935; 92610; 93005; 93925; 93970; 94640; 96365; 96366; 97110; 97140; 97530; 97799; 99285; C1758; C1769; C9113; J0456; J1200; J1815; J1953; J1956; J2250; J2270; J2704; J2916; J3010; J3490; J7030; J7060; J7620; J8597; P9016; Q0092